=== PATIENT | male | born 1990 | race Caucasian/White ===

== ENCOUNTER 2020-09-28 21:54 | Emergency (ER) | payer OTHER ==
[~2020-09-28] VITALS: Ht 180.3 cm; Wt 102.3 kg
--- NOTE | 2020-09-29 00:58 | REPVR ---
PROCEDURE INFORMATION: Exam: XR Right Ankle Exam date and time: 09/29/2020 12:34 AM Age: 30 years old Clinical indication: Injury or trauma; Fall; Blunt trauma and swelling (edema); Ankle; Right; Additional info: Jumped off deck TECHNIQUE: Imaging protocol: XR Right ankle. Views: 3 or more views. COMPARISON: No relevant prior studies available. FINDINGS: Bones/joints: There is an acute nondisplaced fracture involving the medial portion of the talus, which is best seen in the AP and oblique views in series 1 and 3. No other fractures are noted in the right ankle. The ankle mortise is symmetric. The joint spaces and alignment are maintained. No arthropathy is noted. Soft tissues: There is soft tissue swelling around the right ankle. IMPRESSION: Acute nondisplaced fracture involving the medial portion of the right talus. Electronically signed by: Joao Howard On 09/29/2020 00:57:32 AM
--- NOTE | 2020-09-29 00:58 | REPVR ---
PROCEDURE INFORMATION: Exam: XR Right Tibia and Fibula Exam date and time: 09/29/2020 12:34 AM Age: 30 years old Clinical indication: Pain; Ankle; Right; Additional info: Jumped off deck TECHNIQUE: Imaging protocol: XR Right tibia and fibula. Views: 2 views. COMPARISON: CR Ankle, complete RIGHT 09/29/2020 12:12:12 AM FINDINGS: Bones/joints: There is no fracture or dislocation of the right tibia or fibula. Soft tissues: Unremarkable. IMPRESSION: No fracture or dislocation of the right tibia or fibula. Electronically signed by: Joao Howard On 09/29/2020 00:57:39 AM
--- NOTE | 2020-09-29 03:33 | REPVR ---
PROCEDURE INFORMATION: Exam: CT Right Lower Extremity Without Contrast, Ankle Exam date and time: 09/29/2020 2:35 AM Age: 30 years old Clinical indication: Injury or trauma; Fall; Blunt trauma; Ankle; Right TECHNIQUE: Imaging protocol: CT of the Right lower extremity without contrast was performed. Exam focused on the ankle. Radiation optimization: All CT scans at this facility use at least one of these dose optimization techniques: automated exposure control; mA and/or kV adjustment per patient size (includes targeted exams where dose is matched to clinical indication); or iterative reconstruction. COMPARISON: CR Ankle, complete RIGHT 09/29/2020 12:12 AM FINDINGS: Bones/joints: There is acute avulsion fracture involving the talar attachment of the posterior tibiotalar ligament component of the deltoid ligament. There are also acute nondisplaced fractures involving the medial process of the right talus and superior aspect of the right sustentaculum taIi (images 43-44 and 46-48 of the coronal series 203). No other fractures are noted in the right ankle. The joint spaces and alignment are maintained in the right ankle and right midfoot. There is a well-corticated accessory ossicle medial to the navicular, which represents an os navicularis. Soft tissues: There is soft tissue swelling and edema in the subcutaneous tissues along the medial aspect of the right ankle. IMPRESSION: 1. Acute avulsion fracture involving the talar attachment of the posterior tibiotalar ligament component of the deltoid ligament. 2. Acute nondisplaced fracture involving the medial process of the right talus. 3. Acute nondisplaced fracture of the superior aspect of the right sustentaculum taIi. Electronically signed by: Joao Howard On 09/29/2020 03:33:13 AM
--- NOTE | 2020-09-29 03:38 | REPVR ---
PROCEDURE INFORMATION: Exam: CT Lumbar Spine Without Contrast Exam date and time: 09/29/2020 2:35 AM Age: 30 years old Clinical indication: Injury or trauma; Fall; Blunt trauma (contusions or hematomas) TECHNIQUE: Imaging protocol: Computed tomography images of the lumbar spine without contrast. Radiation optimization: All CT scans at this facility use at least one of these dose optimization techniques: automated exposure control; mA and/or kV adjustment per patient size (includes targeted exams where dose is matched to clinical indication); or iterative reconstruction. COMPARISON: No relevant prior studies available. FINDINGS: Vertebrae: There are 5 non-rib bearing lumbar type vertebral bodies. There is a slight levoscoliosis of the lumbar spine. There is no fracture or pars defect. The vertebral body heights are preserved. T11-T12: The disc height is preserved. No disc herniation, spinal canal stenosis, lateral recess stenosis, or neural foraminal stenosis is noted. The facet joints are unremarkable. T12-L1: The disc height is preserved. No disc herniation, spinal canal stenosis, lateral recess stenosis, or neural foraminal stenosis is noted. The facet joints are unremarkable. L1-L2: The disc height is preserved. No disc herniation, spinal canal stenosis, lateral recess stenosis, or neural foraminal stenosis is noted. The facet joints are unremarkable. L2-L3: The disc height is preserved. No disc herniation, spinal canal stenosis, lateral recess stenosis, or neural foraminal stenosis is noted. The facet joints are unremarkable. L3-L4: The disc height is preserved. No disc herniation, spinal canal stenosis, lateral recess stenosis, or neural foraminal stenosis is noted. There is a Schmorl's node in the inferior endplate of L3. The facet joints are unremarkable. L4-L5: There is minimal loss of disc height dorsally, a 4 mm retrolisthesis of L4 on L5 results in a pseudobulge, and mild bilateral neural foraminal stenosis. No spinal canal or lateral recess stenosis is noted. The facet joints are unremarkable. L5-S1: There is mild loss of disc height dorsally and a 4 mm retrolisthesis of L5 on S1. No spinal canal stenosis, lateral recess stenosis, or neural foraminal stenosis is noted. Limited kidneys: There is a 3 mm nonobstructing calculus in an upper pole calyx of the left kidney. No hydronephrosis is noted. The kidneys were not fully imaged. Retroperitoneal space: No retroperitoneal hemorrhage is seen. Vasculature: The abdominal aorta is normal in caliber. Soft tissues: Unremarkable. No soft tissue fluid collection. IMPRESSION: 1. No fracture in the lumbar spine. 2. L4-L5: Minimal loss of disc height dorsally, a 4 mm retrolisthesis of L4 on L5 results in a pseudobulge, and mild bilateral neural foraminal stenosis. 3. L5-S1: Mild loss of disc height dorsally and a 4 mm retrolisthesis L5 on S1. Electronically signed by: Joao Howard On 09/29/2020 03:38:21 AM
[2020-09-29 05:00] VITALS: BP 134/74
[2020-09-29] MEDS ORDERED: NORCO 5/325MG TABLET (BULK FOR ED) PO ONE (05:00)
--- NOTE | 2020-09-29 06:09 | ED PDOC ---
Post-Departure Follow-Up dr urbina faxed formal report of right ankle xray and ct, ct ls spine for fu Kisha Milton MD Sep 29, 2020 06:09
== END 2020-09-29 05:31 | disposition home or self-care (01) ==
LOC: M ED 21:54
DX: S92.101A Unspecified fracture of right talus, initial encounter for closed fracture (principal); X58.XXXA Exposure to other specified factors, initial encounter; Y92.018 Other place in single-family (private) house as the place of occurrence of the external cause

== ENCOUNTER 2020-10-22 13:30 | Outpatient (RCR) | payer OTHER | END 2020-10-25 | LOC: M PT 13:30 | PROVIDERS: ATTEND Physician Assistant | DX: S92.131D Displaced fracture of posterior process of right talus, subsequent encounter for fracture with routine healing (principal); S93.491D Sprain of other ligament of right ankle, subsequent encounter ==

== ENCOUNTER 2020-11-10 15:15 | Outpatient (RCR) | payer OTHER | END 2020-11-25 | LOC: M PT 15:15 | PROVIDERS: ATTEND Physician Assistant | DX: S82.61XA Displaced fracture of lateral malleolus of right fibula, initial encounter for closed fracture (principal); W18.30XA Fall on same level, unspecified, initial encounter; Y92.009 Unspecified place in unspecified non-institutional (private) residence as the place of occurrence of the external cause ==